=== PATIENT | male | born 1985 | race Caucasian/White ===

== ENCOUNTER → 2016-11-21 | Outpatient (CLI) | payer OTHER ==
[~2016-11-21] VITALS: Ht 170.2 cm; Wt 76.9 kg
[2016-11-21 09:30] VITALS: BP 125/85; PULSE 82; Ht 170.2 cm; Wt 76.9 kg
== END | disposition home or self-care (01) ==
LOC: C.NEUR 08:35
PROVIDERS: ATTEND Internal Medicine Pulmonary Disease
DX: G47.33 Obstructive sleep apnea (adult) (pediatric) (principal)

== ENCOUNTER → 2016-11-28 | Outpatient (CLI) | payer OTHER ==
--- NOTE | 2016-11-29 07:00 | SPLIT NIGHT TECHNICIAN REPORT ---
[facility] Split Night Polysomnogram - Head Concierge Report Study date: 11/28/2016 Referring Physician: MAULIK SAUER DO, DO Name: PETER PIMENTEL Head Concierge: ANGEL Best. Date of : 1985 Height: 31 years, Height 5' 7" Sex: Male Weight: 169.5 lbs Age: 31 Neck Circum: 15.5 in BMI: Medications: 26.54 NONE REPORTED Patient History 31 yr-old male here for a baseline/split study (to be split if AHI exceeds 15). He has a history of snoring, witnessed apneas, and daytime sleepiness. His Alpine scale is 16. The test was started on room air. ETCO2 testing was not utilized during this study. Room 1 Parameters Monitored NPSG: E1-M2, E2-M1, Fp1-M2, Fp2-M1, F3-M2, F4-M2, F4-M1, C3-M2, C4-M2, C4-M1, O1-M2, O2-M2, O2-M1, T3-M2, T4-M1, P3-M2, P4-M1, CHIN1, CHIN2, HR, EKG, Legs, PFLOW, SNOR, FLOW, CFLOW, Tidal Volume, THOR, ABDO, SpO2, PLTH, CPRESS, ETCO2 Wave, ETCO2, pH SLEEP SUMMARY DATA DIAGNOSTIC TREATMENT Lights Out: 10:09:53 PM 1:54:23 AM Lights On: 1:36:53 AM 6:09:53 AM Total Recording Time (TRT): 207.0 min. 253.5 min. Total Sleep Time (TST): 142.0 min. 173.0 min. NREM Time: 142.0 min. 139.5 min. REM Time: 0.0 min. 33.5 min. Sleep Period Time (SPT): 173.5 min. 175.0 min. Sleep Efficiency (SE): 69 % 68 % Sleep Latency: 23.0 min. 78.5 min. Arousal Index: 17.7 7.3 PAP Treatment Levels: 4, 6 * Optimal Pressure(s) SLEEP STAGING DATA DIAGNOSTIC TREATMENT Duration (min) TST % Duration (min) TST % Stage Wake: 65.0 min. -- 80.5 min. -- WASO: 42.0 min. -- 2.0 min. -- NREM: 142.0 min. 100 % 139.5 min. 81 % Stage N1: 23.0 min. 16 % 11.5 min. 7 % Stage N2: 92.5 min. 65 % 103.5 min. 60 % Stage N3: 26.5 min. 19 % 24.5 min. 14 % REM: 0.0 min. 0 % 33.5 min. 19 % POSITIONAL DATA Event Count Index Event Count Index Supine: 31 27.8 22 11.5 Supine NREM: 31 27.8 21 15.5 Supine REM: N/A N/A 1 2 Non-Supine: 13 10.4 2 2.1 Non-Supine NREM: 13 10.4 2 2.1 Non-Supine REM: N/A N/A 0 0.0 AROUSAL SUMMARY DATA: Event Count Index Event Count Index Apnea Arousals: 1 0.8 5 6.9 Hypopnea Arousals: 10 4.2 0 0.0 Snore Arousals: 0 0.0 0 0.0 PLM Arousals: 1 0.4 1 0.3 Non-Specific Arousals: 24 10.1 10 3.5 Total Arousals: 42 17.7 21 7.3 MYOCLONUS (PLM) Event Count Index Event Count Index PLM: 6 2.5 10 3.5 PLM AROUSAL: 1 0.4 1 0.3 PLM W/O AROUSAL 6 2.5 9 3.1 PLM W/RESP EVENT 0 0.0 0 0.0 MYOCLONUS (PLM) Event Count Index Event Count Index LM: 7 19.4 27 9.4 LM AROUSAL: 7 3.0 5 1.7 LM W/O AROUSAL LM W/RESP EVENT LM NON SPECIFIC 38 16.1 31 10.8 HEART RATE DATA DIAGNOSTIC TREATMENT Sleep (bpm): 63 59 REM (bpm): N/A 95 NREM (bpm): 93 94 Tachycardia Count: 0 0 Tachycardia Duration: 0.00 0 Bradycardia Count: 0 0 Bradycardia Duration: 0.00 0 DIAGNOSTIC PORTION TREATMENT PORTION RESPIRATORY DATA Event Count Index Event Count Index AHI: -- 18.6 -- 8.3 RDI: -- 18.6 -- 8 Obstructive Apnea: 1 0.4 1 0.3 Central Apnea: 1 0.4 18 6.2 Mixed Apnea: 0 0.0 1 0.3 Hypopnea: 42 17.7 4 1.4 RERA: 0 0.0 0 0.0 Total Apneas: 2 0.8 20 6.9 RESPIRATORY DATA REM NREM SLEEP REM NREM SLEEP Supine Position: Obstructive Apneas: N/A 1 1 0 1 1 Central Apneas: N/A 1 1 1 17 18 Mixed Apneas: N/A 0 0 0 0 0 Hypopneas: N/A 29 29 0 3 3 RERA N/A 0 0 0 0 0 Total Supine Events: N/A 31 31 1 21 22 Supine AHI: N/A 27.8 27.8 2 15.5 11.5 Supine RDI: N/A 27.8 27.8 1.8 15.5 11.5 REM NREM SLEEP REM NREM SLEEP Non-Supine Position: Obstructive Apneas: N/A 0 0 0 0 0 Central Apneas: N/A 0 0 0 0 0 Mixed Apneas: N/A 0 0 0 1 1 Hypopneas: N/A 13 13 0 1 1 RERA N/A 0 0 0 0 0 Total Supine Events: N/A 13 13 0 2 2 Supine AHI: N/A 10.4 10.4 0.0 2.1 2.1 Supine RDI: N/A 10.4 10.4 0.0 2.1 2.1 OXYGEN DESTAURATION DATA: Event Count Index Event Count Index REM Desaturations: N/A N/A 0 0.0 NREM Desaturations: 46 19.4 22 9.5 SNORE DATA DIAGNOSTIC TREATMENT Snore Time: 0.9 3:12:53 AM Snore TST%: 1 3 Snore Arousal Count: 0 0 Snore Arousal Index: 0.0 0.0 Desaturation Event Summary: Minimum %SpO2 Event Count Mean/Min/Max Duration(sec.) Desaturation Index % Time In Bed > 90 77 23.9 / 9.3 / 47.8 10.2 98.4 86 - 90 0 N/A 0.0 1.6 81 - 85 0 N/A 0.0 0.0 76 - 80 0 N/A 0.0 0.0 71 - 75 0 N/A 0.0 0.0 66 - 70 0 N/A 0.0 0.0 61 - 65 0 N/A 0.0 0.0 56 - 60 0 N/A 0.0 0.0 51 - 55 0 N/A 0.0 0.0 < 50 0 N/A 0.0 0.0 OXYGEN SATURATION DATA DIAGNOSTIC TREATMENT SpO2 Mean Sleep: 93 % 94 % SpO2 Mean REM: N/A % 95 % SpO2 Mean NREM: 93 % 94 % SpO2 Minimum Sleep: 85 % 87 % SpO2 Minimum REM: N/A % 93 % SpO2 Minimum NREM: 85 % 87 % Time Below 90% (TST): 2.6 1.1 Time Below 88% (TST): 0.7 0.4 Total REM NREM Awake <50% 0.0 min. 0.0 min. 0.0 min. 0.0 min. 51 - 60% 0.0 min. 0.0 min. 0.0 min. 0.0 min. 61 - 70% 0.0 min. 0.0 min. 0.0 min. 0.0 min. 71 - 80% 0.0 min. 0.0 min. 0.0 min. 0.0 min. 81 - 90% 7.5 min. 0.0 min. 7.4 min. 0.1 min. 91 - 100% 452.1 min. 33.5 min. 274.1 min. 144.5 min. Average 94 95 94 95 Minimum SpO2 85 93 85 90 Desaturation Event Index 10.0 0.0 14.5 3.7 # Desat. Events below 89% 11 N/A 11 N/A Time(%) with Saturation below 89% 0.4 0.0 0.4 0.0 Time(min.) with Saturation below 89% 1.9 0.0 1.9 0.0 Recording Head Concierge Comments: Mr. Rivas slept in the right, left, and supine positions. No cardiac arrhythmias were noted. A few episodes of bruxism were noted. Snoring was noted and scored as a 2 on a scale of 1 through 5. (0=no snoring, 5=snoring loud enough to be heard through a closed door or down the [address] way) At 1:45 am, he met specific Split-Night criteria during the diagnostic portion of this study. CPAP was initiated at +4 CMH2O and up-titrated to a level of +6 CMH2O, Cflex 3. It took him awhile to get to sleep after initiating CPAP treatment. He did have numerous sleep onset central apneas. The pressure remained at 4 CMH2O to see if the central apneas would eventually stop. Once he entered into stage 2 sleep, almost all central apneas ceased. A Quattro Air full face mask size medium from [employer] was used during titration He awoke to use the restroom one time during the night. Mr. Pimentel stated that he slept about the same as usual. The final report will be interpreted and signed by a sleep physician. The completed physician report will then be placed in the patient medical record. Therapy Event: Therapy (cm H20) 0 4 6 Total Time at Pressure (min.) 207.0 92.5 161.0 TST at Pressure (min.) 142.0 12.5 160.5 # Periods 1 1 1 Sleep Onset (min.) 23.0 78.5 0.0 REM Onset (min.) N/A N/A 59.5 Sleep Efficiency % 68 13 99 Wakefulness (%) 31.4 86.5 0.3 Wakefulness (min.) 65.0 80.0 0.5 NREM 1 (%) 11.1 8.7 2.2 NREM 1 (min.) 23.0 8.0 3.5 NREM 2 (%) 44.7 4.8 61.5 NREM 2 (min.) 92.5 4.5 99.0 NREM 3 (%) 12.8 0.0 15.2 NREM 3 (min.) 26.5 0.0 24.5 REM (%) 0.0 0.0 20.8 REM (min.) 0.0 0.0 33.5 # Arousals 42 7 14 Arousal Index 17.7 33.7 5.2 # Snore 28 6 17 Snore Index 11.8 28.9 6.4 AHI 18.6 81.8 2.6 AHI Supine 27.8 81.8 2.9 AHI Non-Supine 10.4 N/A 2.1 NREM AHI 18.6 81.8 2.8 REM AHI N/A N/A 1.8 RDI 18.6 81.8 2.6 # Obstructive 1 0 1 # Central Ap 1 15 3 # Mixed 0 0 1 # Hypopneas 42 2 2 RERAS 0 0 0 Total Respiratory Events 44 17 7 Time Below SpO2 89.00% (min.) 1.3 0.6 0.0 Mean NREM SpO2 (%) 93 93 94 Mean REM SpO2 (%) N/A N/A 95 Mean Sleep SpO2 (%) 93 93 94 Min NREM SpO2 (%) 85 87 90 Min REM SpO2 (%) N/A N/A 93 Position Supine (min.) 67.0 12.5 102.1 Position Non-supine (min.) 75.0 0.0 58.4 LM Index Sleep 22.0 19.3 12.3 LM Index NREM 22.0 19.3 11.8 LM Index REM N/A N/A 14.3 Mean Heart Rate (bpm) 63 59 59 Min Heart Rate (bpm) 53 53 50
--- NOTE | 2016-11-30 08:23 | POLYSOMNOGRAPH REPORT ---
DATE OF STUDY: 11/28/2016. CLINICAL DATA: The patient is a 31-year-old male with a BMI of 26.54. He is referred by Paramjit Mcdowell. He has complaints of snoring, observed apneas, disturbed nocturnal sleep, bruxism, and acting out dreams. He had an [place] Sleepiness Score of 16. This was an in-lab split night study. SLEEP ARCHITECTURE: During the diagnostic portion of the study, the sleep period time was 173.5 minutes and the total sleep time was 142.0 minutes. The sleep efficiency was reduced to 69%. The sleep latency was 23 minutes. Sleep consisted of stage N1 16%, stage N2 65%, stage N3 19%, and stage REM 0%. During the therapeutic portion of the study, the patient's nocturnal events were treated with nasal CPAP. The sleep period time was 175.0 minutes and the total sleep time was 173.0 minutes. The sleep latency was very prolonged to 78.5 minutes. The sleep efficiency was 68%. Sleep consisted of stage N1 7%, stage N2 60%, stage N3 14%, and stage REM 19%. AROUSAL DATA: During the diagnostic portion of the study, the patient had 42 arousals consisting of 1 apnea arousal, 10 hypopnea arousals, 1 PLM arousal, and 24 nonspecific arousals. The PLM index was 17.7. During the therapeutic portion of the study, the patient had a total of 21 arousals including 5 apnea arousals, 1 PLM arousal, and 10 nonspecific arousals. The arousal index was 7.3. PLM DATA: During the diagnostic portion of the study, the patient had 6 periodic limb movements for an index of 2.5. During the therapeutic portion he had 9 periodic limb movements for an index of 3.1. EKG: The underlying cardiac rhythm was normal sinus. No arrhythmias were noted. The cardiac rates ranged from 63-94 beats per minute. RESPIRATORY DATA: During the diagnostic portion of the study, the patient had a total of 44 respiratory events including 1 obstructive apnea, 1 central apnea, and 42 hypopneas. Hypopneas were scored according to the 4% desaturation rule. The apnea hypopnea index was moderately elevated at 18.6. During the therapeutic portion of the study, the patient's nocturnal events were treated with nasal CPAP, which was titrated to a maximum pressure of 6 cm. The patient had a total of 24 respiratory events including 1 obstructive apnea, 18 central apneas, 1 mixed apnea, and 4 hypopneas. The apnea hypopnea index was 8.3. At the final pressure of 6 cm the patient had an apnea hypopnea index of 2.6 and this was over a period of 161 minutes. OXIMETRY DATA: During the diagnostic portion of the study, the mean saturation was 93% with a minimum saturation of 85%. There was only 0.7 minutes with saturations less than 88%. During the treatment portion of the study, the mean saturation was 94% with a minimum saturation of 87% and 0.4 minutes with saturations less than 88%. FINISHER TAILOR APPRENTICE COMMENTS: The patient slept in the right, left, and supine positions. No cardiac arrhythmias were noted. A few episodes of bruxism were noted. Snoring was noted and scored as a 2 on a scale of 1 through 5. At 1:45 a.m. the patient met specific split night criteria during the diagnostic portion of the study. CPAP was initiated at 4 cm and up titrated to a level of 6 cm with C-Flex 3. It took the patient a while to get to sleep after initiating CPAP treatment. He did have numerous sleep onset central apneas. Once the patient entered into stage II sleep, almost all central apneas ceased. A [employer] Quattro Air full face mask size medium was utilized. IMPRESSIONS: Moderate obstructive sleep apnea -- markedly improved with nasal CPAP at 6 cm. COMMENTS: The patient has moderate sleep apnea as noted. He did not have any significant oxygen desaturations. There were relatively few limb movements. He had a prolonged time falling asleep with CPAP in place. Early on he had central sleep apnea that for the most part resolved. His sleep was fairly well consolidated over the last 2-1/2 to 3 hours of sleep. He had no significant sleep apnea at the final pressure. RECOMMENDATIONS: 1. It is advised that the patient be started on nasal CPAP at 6 cm. 2. It is advised that he be ordered a [employer] Quattro Air full facemask size medium. 3. If possible the patient should avoid sleeping in the supine position. 4. The patient has a mild elevation of body mass index. Weight loss is advised as even mild weight reduction may result in some improvement in sleep disordered breathing. 5. If the patient would refuse treatment with nasal CPAP therapy, consideration could be given to treatment with an oral appliance. MTDD
== END | disposition home or self-care (01) ==
LOC: C.NEUR 20:00
PROVIDERS: ATTEND Internal Medicine Pulmonary Disease
DX: G47.33 Obstructive sleep apnea (adult) (pediatric) (principal)

== ENCOUNTER → 2016-12-12 | Outpatient (CLI) | payer OTHER ==
[~2016-12-12] VITALS: Ht 170.2 cm; Wt 79.9 kg
[2016-12-12 12:28] VITALS: BP 125/85; PULSE 71; Ht 170.2 cm; Wt 79.9 kg
== END | disposition home or self-care (01) ==
LOC: C.NEUR 11:10
PROVIDERS: ATTEND Internal Medicine Pulmonary Disease
DX: G47.33 Obstructive sleep apnea (adult) (pediatric) (principal)

== ENCOUNTER → 2017-02-18 | Outpatient (CLI) | payer OTHER | END | disposition home or self-care (01) | LOC: C.PATHSPEC 16:19 | PROVIDERS: ATTEND Dermatology | DX: L57.0 Actinic keratosis (principal) ==

== ENCOUNTER → 2017-03-14 | Outpatient (CLI) | payer OTHER ==
[~2017-03-14] VITALS: Ht 170.2 cm; Wt 80.0 kg
[2017-03-14 12:03] VITALS: BP 116/81; PULSE 71; Ht 170.2 cm; Wt 80.0 kg
== END | disposition home or self-care (01) ==
LOC: C.NEUR 10:28
PROVIDERS: ATTEND Internal Medicine Pulmonary Disease
DX: G47.33 Obstructive sleep apnea (adult) (pediatric) (principal)

== ENCOUNTER → 2017-03-20 | Outpatient (CLI) | payer OTHER ==
[2017-03-20 13:53] LABS: BLOOD UREA NITROGEN 15 mg/dl (7-18); BUN/CREATININE RATIO 15.2 (10-20); CALCIUM 8.5 mg/dl (8.5-10.1); CARBON DIOXIDE 30 mmol/L (21-32); CHLORIDE 107 mmol/L (98-107); GLUCOSE 93 mg/dl (70-99); POTASSIUM 4.6 mmol/L (3.5-5.1); SODIUM 139 mmol/L (136-145)
[2017-03-20 13:57] LABS: CHOLESTEROL 158 mg/dl (0-200); CHOLESTEROL/HDL RATIO 2.6; HDL CHOLESTEROL 60 mg/dl; LDL CHOLESTEROL CALCULATED 88 mg/dl; TRIGLYCERIDES 51 mg/dl (0-150); VERY LOW DENSITY LIPOPROT CALC 10 mg/dl
== END | disposition home or self-care (01) ==
LOC: C.LABBC 11:01
PROVIDERS: ATTEND Nurse Practitioner Family
DX: Z13.1 Encounter for screening for diabetes mellitus (principal); Z13.220 Encounter for screening for lipoid disorders

== ENCOUNTER → 2017-09-05 | Outpatient (CLI) | payer OTHER ==
[~2017-09-05] VITALS: Ht 170.2 cm; Wt 82.3 kg
[2017-09-05 09:29] VITALS: BP 112/77; PULSE 67; Ht 170.2 cm; Wt 82.3 kg
== END | disposition home or self-care (01) ==
LOC: C.NEUR 08:32
PROVIDERS: ATTEND Internal Medicine Pulmonary Disease
DX: G47.33 Obstructive sleep apnea (adult) (pediatric) (principal); Z91.030 Bee allergy status